=== PATIENT | female | born 1995 | race Two or more races ===

== ENCOUNTER 2021-06-08 00:20 | Observation (INO) | payer MEDICAID, OTHER ==
[~2021-06-08] VITALS: Ht 160 cm; Wt 72.1 kg
[2021-06-08] MEDS ORDERED: LACTATED RINGER'S 1,000 ML IV SCH (00:45)
[2021-06-08] MEDS ORDERED: LACTATED RINGER'S 1,000 ML IV ONE (00:45)
[2021-06-08] MEDS ORDERED: ONDANSETRON HCL 4 MG/2 ML VIAL IM ONE (00:45)
[2021-06-08] MEDS ORDERED: ONDANSETRON ODT 4 MG TAB PO ONE (00:51)
[2021-06-08] MEDS ORDERED: ONDANSETRON HCL 4 MG/2 ML VIAL ONE (00:51)
[2021-06-08] MEDS: TERBUTALINE SULFATE 1 MG/ML 1ML VIAL SC SCH ×2 (00:57→01:20)
[2021-06-08] MEDS ORDERED: PREN-96 PO (02:54)
[2021-06-08 03:14] LABS: Urine Amorphous Crystal FEW /hpf (None Seen); Urine Bacteria NONE SEEN /hpf (None Seen); Urine Blood Negative /uL (Negative); Urine Specific Gravity 1.017 (1.001-1.035); Urine WBC 2 /hpf (0 - 5)
[2021-06-08 03:28] LABS: Amphetamine Screen, Urine NEGATIVE (NEGATIVE); Barbiturate Scree,Urine NEGATIVE (NEGATIVE); Benzodiazephine Screen, Urine NEGATIVE (NEGATIVE); Cannabinoid Screen, Urine NEGATIVE (NEGATIVE); Cocaine Screen, Urine NEGATIVE (NEGATIVE); Opiate Scree,Urine NEGATIVE (NEGATIVE)
[2021-06-08 03:33] LABS: Phencyclidine Screen, Urine NEGATIVE (NEGATIVE)
== END 2021-06-08 03:09 | disposition home or self-care (01) ==
LOC: LDRP 00:20
PROVIDERS: ADMIT Obstetrics & Gynecology; ATTEND Obstetrics & Gynecology
DX: O60.02 Preterm labor without delivery, second trimester (principal); O26.892 Other specified pregnancy related conditions, second trimester; R10.30 Lower abdominal pain, unspecified; O21.2 Late vomiting of pregnancy; Z3A.25 25 weeks gestation of pregnancy; Z79.899 Other long term (current) drug therapy
CPT/HCPCS: 59025; 80307; 81001; 81002; 94760; 96360; 96361; 96372; G0378; J2405; J3105; Q0162